=== PATIENT | male | born 1975 | race Caucasian/White ===

== ENCOUNTER → 2018-10-24 08:13 | Outpatient (CLI) | payer OTHER, SELFPAY ==
--- NOTE | 2018-10-24 | DI.ECHO.S_ITS ---
[place] [facility]---------+ [facility] +---------+ : : [address] : [address] : : : : [id number] : : : : Phone: [phone]---------+ Echocardiogram Report + + :Name: WALDEMAR HERNANDEZ Study Date: 10/24/2018 Height: 75 in : :[facility] Weight: 205 lb : : Gender: Male BSA: 2.2 m2 : :: 1975 Age: 43 yrs BP: 120/82 mmHg: :Reason For Study: QTC : : Performed By: Ioana Callahan : :Referring: DENNISE HER : + + Interpretation Summary The ejection fraction is estimated to be 60-65%. There is no significant valvular heart disease. Procedure: A two-dimensional transthoracic echocardiogram with color flow and Doppler was performed. The study quality was technically good. There is no prior echocardiogram noted for this patient. The patient was in normal sinus rhythm during the exam. Left Ventricle: The left ventricle is normal in size, wall thickness, and systolic function without any focal wall motion abnormalities. The ejection fraction is estimated to be 60-65%. Left ventricular wall motion is normal. Diastolic parameters suggest probable normal left ventricular diastolic function and normal filling pressures. Right Ventricle: The right ventricle grossly appears normal in size with probable normal systolic function. Atria: The left atrium is borderline dilated. Right atrial size is normal. The interatrial septum is intact with no evidence for an atrial septal defect. Mitral Valve: The mitral valve is grossly normal. There is trace mitral regurgitation. Aortic Valve: The aortic valve is trileaflet. The aortic valve opens well. No aortic regurgitation is present. Tricuspid Valve: The tricuspid valve is normal in structure and function. There is trace tricuspid regurgitation. The right ventricular systolic pressure is estimated to be at least 24 mmHg based on an estimated right atrial pressure of 3 mm Hg. Pulmonic Valve: The pulmonic valve is normal in structure and function. There is trace pulmonic regurgitation. Great Vessels: The aortic root is normal size. The dimensions of the ascending aorta are normal. The aortic arch is normal in size. The IVC is of normal diameter and collapses greater than 50% with a sniff. This suggests a low right atrial pressure of 3 mm Hg. Pericardium/ Pleura There is no pericardial effusion. There is no pleural effusion. MMode/2D Measurements & Calculations LVIDd: 5.5 cm Ao root diam: 3.5 cm LVIDs: 3.4 cm Aortic Jxn: 3.2 cm FS: 38.4 % asc Aorta Diam: 3.3 cm EPSS: 0.69 cm Ao Arch Diam (Prox Trans): 2.9 cm IVSd: 1.1 cm LVPWd: 1.0 cm LV naylor. diameter/BSA (cm/m^2): 2.5 LV sys. diameter/BSA (cm/m^2): 1.5 LA dimension: 3.9 cm RA long axis: 5.4 cm LA A2 area: 21.2 cm2 RA area: 19.0 cm2 LA A4 area: 21.4 cm2 RA vol: 56.3 ml LA length (vol): 5.4 cm RA : 25.4 ml/m2 LA vol: 70.9 ml IVC diam: 1.7 cm LA vol index: 32.0 ml/m2 RVDd major: 6.2 cm RVD1 (basal): 4.2 cm RVD2 (mid): 3.4 cm Doppler Measurements & Calculations Ao V2 max: 148.2 cm/sec MV E max wyatt: 83.8 cm/sec Ao V2 mean: 102.6 cm/sec MV A max wyatt: 78.5 cm/sec Ao max P.8 mmHg MV E/A: 1.1 Ao mean P.8 mmHg Med Peak E' Wyatt: 8.0 cm/sec Ao V2 VTI: 34.7 cm E/E' med: 10.5 Lat Peak E' Wyatt: 9.9 cm/sec E/E' lat: 8.5 E/e' average: 9.5 MV dec time: 0.28 sec MV P1/2t: 81.0 msec TR max wyatt: 229.0 cm/sec MV P1/2t max wyatt: 83.3 cm/sec TR max P.0 mmHg MVA(P1/2t): 2.7 cm2 PA V2 max: 77.7 cm/sec PA V2 mean: 51.0 cm/sec PA mean P.2 mmHg PA Accel Time: 0.18 sec Reading Physician:11:17 AM
== END ==
PROVIDERS: PCP Physician Assistant; Visit Provider Physician Assistant
DX: R55 Syncope and collapse (principal)
CPT/HCPCS: 93306